=== PATIENT | male | born 1980 | race Caucasian/White ===

== ENCOUNTER 2017-09-25 05:41 | Emergency (ER) | payer MEDICAID ==
[2017-09-25] MEDS ORDERED: CLINDAMYCIN 150 MG CAP PO ONE (06:08)
[2017-09-25] MEDS ORDERED: HYDROCODONE/APAP 5/325MG TABLET PO ONE (06:09)
--- NOTE | 2017-09-25 06:12 | Emergency Department Record ---
History of Present Illness - General Chief complaint: Dental Stated complaint: DENTAL PAIN Time Seen by Provider: 09/25/17 05:59 Source: Patient Mode of Arrival: Ambulatory Limitations: No limitations - History of Present Illness Initial comments: pt has a tooth ache in lower left jaw. it has kept him awake for 2 nights complaint: Tooth pain Onset/Timin -: Hour(s) Location: Tooth # Severity: Severe Severity scale (1-10): 9 Context- Dental: History of dental caries, Poor dental care Associated Symptoms: Toothache - Related Data Previous Rx's Medication Instructions Recorded Clindamycin HCl 150 mg PO TID #20 capsule 09/25/17 Clindamycin HCl [Cleocin HCl] 300 mg PO TID #20 capsule 09/25/17 Hydrocodone/Acetaminophen [[place] 1 each PO Q6HR #10 tablet 09/25/17 5-325 Tablet] Allergies Allergy/AdvReac Type Severity Reaction Status Date / Time piperacillin [From Zosyn] Allergy ANAPHYLAXIS Verified 09/25/17 05:46 tazobactam [From Zosyn] Allergy ANAPHYLAXIS Verified 09/25/17 05:46 Travel Screening - Travel/Exposure Within Last 30 Days Have you traveled within the last 30 days?: No Review of Systems Reviewed: No additional complaints except as noted below Constitutional: Reports: As per HPI. Denies: Chills, Fever, Malaise, Night sweats, Weakness, Weight change Eyes: Reports: As per HPI. Denies: Eye discharge, Eye pain, Photophobia, Vision change ENT: Reports: As per HPI, Dental pain. Denies: Congestion, Ear pain, Epistaxis , Hearing loss, Throat pain Respiratory: Reports: As per HPI. Denies: Cough, Dyspnea, Hemoptysis, Stridor, Wheezes Cardiovascular: Reports: As per HPI. Denies: Arrhythmia, Chest pain, Dyspnea on exertion, Edema, Murmurs, Orthopnea, Palpitations, Paroxysmal nocturnal dyspnea, Rheumatic Fever, Syncope Endocrine: Reports: As per HPI. Denies: Fatigue, Heat or cold intolerance, Polydipsia, Polyuria Gastrointestinal: Reports: As per HPI. Denies: Abdominal pain, Constipation, Diarrhea, Hematemesis, Hematochezia, Melena, Nausea, Vomiting Genitourinary: Reports: As per HPI. Denies: Dysuria, Frequency, Hematuria, Incontinence, Retention, Testicular pain, Testicular mass, Urgency Musculoskeletal: Reports: As per HPI. Denies: Arthralgia, Back pain, Gout, Joint swelling, Myalgia, Neck pain Skin: Reports: As per HPI. Denies: Bruising, Change in color, Change in hair/ nails, Lesions, Pruritus, Rash Neurological: Reports: As per HPI. Denies: Abnormal gait, Confusion, Headache, Numbness, Paresthesias, Seizure, Tingling, Tremors, Vertigo, Weakness Psychiatric: Reports: As per HPI. Denies: Anxiety, Auditory hallucinations, Depression, Homicidal thoughts, Suicidal thoughts, Visual hallucinations Hematological/Lymphatic: Reports: As per HPI. Denies: Anemia, Blood Clots, Easy bleeding, Easy bruising, Swollen glands Past Medical History - SOCIAL HISTORY Smoking Status: Current every day smoker Alcohol Use: Occasional Drug Use: None - RESPIRATORY Hx Respiratory Disorders: No - CARDIOVASCULAR Hx Cardio Disorders: No - NEURO Hx Neuro Disorders: No - GI Hx GI Disorders: No - Hx Genitourinary Disorders: No - ENDOCRINE Hx Endocrine Disorders: No - MUSCULOSKELETAL Hx Musculoskeletal Disorders: No - PSYCH Hx Psych Problems: No - HEMATOLOGY/ONCOLOGY Hx Hematology/Oncology Disorders: Yes Hx Cancer: Yes (bladder) Hx Chemotherapy: Yes (bladder chemotherapy) Hx Radiation Therapy: No Family Medical History Any Significant Family History?: No Physical Exam - General General Appearance: Alert, Oriented x3, Cooperative, Mild distress - Head Head exam: Normal inspection Image of Face/Head: 1 - swelling, mild - Eye Eye exam: Normal appearance, PERRL, EOMI Pupils: Normal accommodation - ENT ENT exam: Normal exam, Mucous membranes moist, Normal external ear exam, Normal orophraynx, TM's normal bilaterally Ear exam: Normal external inspection. negative: External canal tenderness Nasal Exam: Normal inspection. negative: Discharge, Sinus tenderness Mouth exam: Normal external inspection, Tongue normal Teeth exam: Dental caries, Dental tenderness #, Gingival enlargement, Other ( mild swelling of l lower jaw) Throat exam: Normal inspection. negative: Tonsillar erythema, Tonsillar exudate Image of Mouth/Teeth: 1 - decay, tenderness - Neck Neck exam: Normal inspection, Full ROM. negative: Tenderness - Respiratory Respiratory exam: Normal lung sounds bilaterally. negative: Respiratory distress - Cardiovascular Cardiovascular Exam: Regular rate, Normal rhythm, Normal heart sounds - GI/Abdominal GI/Abdominal exam: Soft, Normal bowel sounds. negative: Tenderness - Rectal Rectal exam: Deferred - exam: Deferred - Extremities Extremities exam: Normal inspection, Full ROM, Normal capillary refill. negative: Tenderness - Back Back exam: Reports: Normal inspection, Full ROM. Denies: Muscle spasm, Rash noted, Tenderness - Neurological Neurological exam: Alert, CN II-XII intact, Normal gait, Oriented X3 - Psychiatric Psychiatric exam: Normal affect, Normal mood - Skin Skin exam: Dry, Intact, Normal color, Warm Course Vital Signs 09/25/17 05:45 Temperature 98.5 F Pulse Rate 117 H Respiratory 20 Rate Blood Pressure 148/99 Pulse Ox 97 Disposition Disposition: Discharge Clinical Impression: Dental abscess Disposition: Home, Self-Care Condition: (1) Good Instructions: Dental Abscess (ED) Additional Instructions: follow up with dentist tomorrow. return sooner if worse. sleep elevated Prescriptions: Hydrocodone/Acetaminophen [[place] 5-325 Tablet] 1 each PO Q6HR #10 tablet Clindamycin HCl 150 mg PO TID #20 capsule Clindamycin HCl [Cleocin HCl] 300 mg PO TID #20 capsule Quality - Quality Measures Quality Measures: N/A - Blood Pressure Screening Does Patient Have Any of the Following: No Blood Pressure Classification: Hypertensive Reading Systolic Measurement: 148 Diastolic Measurement: 99 Screening for High Blood Pressure: < First Hypertensive BP, F/U Documented > [ G8950] First Hypertensive Follow-up Interventions: Follow-up with rescreen GT 1 day and LT 4 weeks.
== END 2017-09-25 07:10 | disposition home or self-care (01) ==
LOC: ER 05:41
DX: K04.7 Periapical abscess without sinus (principal); F17.210 Nicotine dependence, cigarettes, uncomplicated
CPT/HCPCS: 99282

== ENCOUNTER 2018-01-07 17:13 | Emergency (ER) | payer BC, MEDICAID ==
[2018-01-07] MEDS ORDERED: AMOXICILLIN/POTASSIUM CLAV 875MG/125MG TABLET PO ONE (17:22)
[2018-01-07] MEDS ORDERED: TETANUS AND DIPHTHERIA PF 0.5 ML SYR IM ONE (17:22)
[2018-01-07] MEDS ORDERED: Diph,Pert(Acell),Tet Vac 0.5 ML SYR IM ONE (17:28)
--- NOTE | 2018-01-07 17:29 | Emergency Department Record ---
History of Present Illness - General Chief Complaint: Animal Bite Stated Complaint: R INDEX FINGER/CAT BITE Time Seen by Provider: 01/07/18 17:16 Source: Patient Mode of Arrival: Ambulatory Limitations: No limitations - History of Present Illness Initial Comments: 37 yo male presents with a cat bite to the right index finger. The cat is a known, well, immunized cat that was hiding and suddenly scared by the patient. The injury occurred 3 hours ago. He immediately cleaned the injury. His last tetanus shot was age 6. No significant pain, mild swelling, no redness at this time. Full movement and sensation are intact. He states he is NOT allergic to Augmentin Complaint: Animal bite -: Hour(s) (3) Right: Hand (index finger) Animal: Cat Description: Household pet, Immunizations UTD Mechanism: Bite Context: Provoked (He frightened the animal and it bit him) Associated Symptoms: None Treatments Prior to Arrival: Other (cleaned with peroxide) - Related Data Previous Rx's Medication Instructions Recorded Amoxicillin/Potassium Clav 1 tab PO BID #14 tab 01/07/18 [Augmentin 875-125 Tablet] Allergies Allergy/AdvReac Type Severity Reaction Status Date / Time piperacillin [From Zosyn] Allergy ANAPHYLAXIS Verified 01/07/18 17:17 tazobactam [From Zosyn] Allergy ANAPHYLAXIS Verified 01/07/18 17:17 Review of Systems Constitutional: Denies: Chills, Fever, Malaise, Weakness Eyes: Denies: Eye discharge ENT: Denies: Congestion, Throat pain Respiratory: Denies: Cough Cardiovascular: Denies: Chest pain, Syncope Endocrine: Denies: Fatigue Gastrointestinal: Denies: Diarrhea, Nausea, Vomiting Genitourinary: Denies: Dysuria, Frequency, Hematuria Musculoskeletal: Denies: Arthralgia, Joint swelling, Myalgia Skin: Reports: Other (bite wound). Denies: Bruising, Change in color, Rash Neurological: Denies: Numbness, Tingling Psychiatric: Denies: Anxiety Hematological/Lymphatic: Denies: Blood Clots, Easy bleeding, Easy bruising Past Medical History - SOCIAL HISTORY Smoking Status: Current every day smoker Drug Use: None - RESPIRATORY Hx Respiratory Disorders: No - CARDIOVASCULAR Hx Cardio Disorders: No - NEURO Hx Neuro Disorders: No - GI Hx GI Disorders: No - Hx Genitourinary Disorders: No - ENDOCRINE Hx Endocrine Disorders: No - MUSCULOSKELETAL Hx Musculoskeletal Disorders: No - PSYCH Hx Psych Problems: No - HEMATOLOGY/ONCOLOGY Hx Hematology/Oncology Disorders: Yes Hx Cancer: Yes (bladder) Hx Chemotherapy: Yes (bladder chemotherapy) Hx Radiation Therapy: No Physical Exam - General General Appearance: Alert, Oriented x3, Cooperative, No acute distress Limitations: No limitations - Head Head exam: Atraumatic, Normal inspection - Eye Eye exam: Normal appearance, PERRL. negative: Conjunctival injection - ENT ENT exam: Normal exam Ear exam: Normal external inspection Nasal Exam: Normal inspection Mouth exam: Normal external inspection - Neck Neck exam: Normal inspection - Cardiovascular Cardiovascular Exam: Regular rate, Normal rhythm Peripheral Pulses: 2+: Radial (R) - Extremities Extremities exam: Full ROM, Normal capillary refill. negative: Normal inspection, Joint swelling, Tenderness Image of Hand: 1 - area of bite, mild swellling, full ROM without limitation, no visible FB - Neurological Neurological exam: Alert, Oriented X3. negative: Motor sensory deficit - Psychiatric Psychiatric exam: Normal affect, Normal mood. negative: Agitated, Anxious - Skin Skin exam: Dry, Other (bite wound to index finger). negative: Cyanosis, Diaphoretic, Erythema, Intact, Mottled, Pallor, Petechiae Type of lesion: Bite/sting Course - Reevaluation(s) Reevaluation #1: The wound cleaned copiously with ShurClens and irrigated with NS under pressure 01/07/18 17:45 The XR was reviewed by me. NO visible fracture or FB Augmentin was provided in the ED We discussed that up to 80% of cat bites can become infected We discussed home care and reasons to return or be seen if worse. Disposition Disposition: Discharge Clinical Impression: Cat bite of index finger Qualifiers: Encounter type: initial encounter Qualified Code(s): S61.258A - Open bite of other finger without damage to nail, initial encounter Disposition: Home, Self-Care Condition: (1) Good Instructions: Animal Bite (ED) Additional Instructions: Take the antibiotic as directed Be seen immediately if worse, fever, pus, swelling, pain, abnormally warm finger or any new concerns Prescriptions: Amoxicillin/Potassium Clav [Augmentin 759-125 Tablet] 1 tab PO BID #14 tab Forms: Patient Portal Access Time of Disposition: 17:47 Quality - Quality Measures Quality Measures: N/A - Blood Pressure Screening Does Patient Have Any of the Following: No Blood Pressure Classification: Hypertensive Reading Systolic Measurement: 149 Diastolic Measurement: 102 Screening for High Blood Pressure: < Pre-Hypertensive BP, F/U Documented > [ G8950] Pre-Hypertensive Follow-up Interventions: Referral to alternative/primary care provider.
--- NOTE | 2018-01-09 10:07 | RADIOLOGY REPORT ---
EXAM: RIGHT SECOND DIGIT, THREE VIEWS HISTORY: PATIENT HAD CAT BITE TWO HOURS AGO. PATIENT NOW FEELS STIFFNESS IN THE RIGHT FINGER. TECHNIQUE: Three views of the right second digit are provided without comparison examinations. FINDINGS: There is no radiographic evidence of a fracture or dislocation of the right second digit. Soft tissue swelling is noted over the right second digit. Cellulitis cannot be excluded. No radiopaque foreign bodies are identified. IMPRESSION: SOFT TISSUE SWELLING IS NOTED OVER THE RIGHT SECOND DIGIT WITHOUT RADIOGRAPHIC EVIDENCE OF A FRACTURE OR DISLOCATION OF THE RIGHT SECOND DIGIT. NO RADIOPAQUE FOREIGN BODIES ARE IDENTIFIED. JOB NUMBER: [id number] AND [id number] [facility]
== END 2018-01-07 18:00 | disposition home or self-care (01) ==
LOC: ER 17:13
DX: S61.250A Open bite of right index finger without damage to nail, initial encounter (principal); W55.01XA Bitten by cat, initial encounter; F17.210 Nicotine dependence, cigarettes, uncomplicated; Y92.009 Unspecified place in unspecified non-institutional (private) residence as the place of occurrence of the external cause
CPT/HCPCS: 73140; 90715; 99283